=== PATIENT | female | born 1945 | race Caucasian/White ===

== ENCOUNTER 2017-03-21 12:02 | Day surgery (SDC) | payer OTHER ==
[~2017-03-21] VITALS: Ht 160 cm; Wt 104.5 kg
[~2017-03-21 12:02] MED LIST: ASPI81CH CHEW; ATEN25TA PO; B12-1CHW CHEW; CALTTAB PO; CARB25TA9 PO; CEFU250T PO; CHOL1CAP14 PO; CITA10TA4 PO; CLOP75TA PO; ENAL10TA PO; ENAL20TA; FURO20TA; GLIP5TAB8 PO; HYDR-3534 PO; HYDR25TA5 PO; IPRASOL NEB; LEVO100T5; LEVO100T63 PO; LOVA40TA; MAGN400C2; METF500T PO; POTA20TA5; PRAV40TA PO; PRAV40TA2; VENTAER INH; [UNRECOGNIZED DRUG - CODE]
[2017-03-21] MEDS ORDERED: VITA50TA10 PO (12:45)
[2017-03-21] MEDS ORDERED: ALEN1TAB48 PO (12:45)
[2017-03-21 12:53] VITALS: BP 147/75; PULSE 68; RESP 20; TEMP 98.2; O2SAT 93
[2017-03-21 15:09] VITALS: BP 138/79; PULSE 78; RESP 18; TEMP 97.9; O2SAT 98
--- NOTE | 2017-03-21 15:09 | PD.RAD ---
Post Procedure Progress Note Pre Procedure Diagnosis: (1) Normal pressure hydrocephalus Post Procedure Diagnosis: (1) Normal pressure hydrocephalus Procedure Date: March 21, 2017 Supervising Radiologist: Ashvin Carvajal JR Proceduralist/Assist: RT Alyssa(R) Anesthesia: Local Plan of Activity Patient to Unit: ROPU Patient Condition: Good Additional Comments: Shuntogram shows patent shunt. See full dictation in PACS See PACS Report for procedural detail/treatment Jr. Wei,Ashvin Diaz MD March 21, 2017 15:09
[2017-03-21] MEDS ORDERED: IOHEXOL 300 MG/ML 50 ML BTL (for RAD DIAG) ONE (15:17)
[2017-03-21 15:24] VITALS: BP 142/77; PULSE 75; RESP 19; O2SAT 99
[2017-03-21 15:54] VITALS: BP 140/70; PULSE 78; RESP 18; O2SAT 96
--- NOTE | 2017-03-21 17:45 | RADRPT ---
EXAM DATE/TIME: 03/21/2017 14:23 [facility] COMPARISON: No previous studies available for comparison. INDICATIONS : Patient with history of normal pressure hydrocephalus in need of shuntogram. MEDICAL HISTORY : HTN, HLD, Diabetes, NPH, VA, Asthma, CAD, Melanoma, Meningiomas, Osteoarthritis, Osteoporosis, Hypoth yroidism, V-Fib and V-tach SURGICAL HISTORY : Pacemaker, Cardiac cath with stent, [employer] Shunt, Tonsillectomy ENCOUNTER: Initial ACUITY: 1 week PAIN SCORE: 0/10 FLUORO TIME: 1.7 minutes IMAGE SERIES: 13 CONTRAST: 10 cc Omnipaque (iohexol) 300 PROCEDURE : 1. Fluoroscopically guided shuntogram. The risks, benefits and alternatives to the procedure were explained and verbal and written consent w as obtained. The site was prepped in sterile fashion. Full sterile technique was used, including ca p, mask, sterile gloves and gown and a large sterile sheet. Hand hygiene and 2% chlorhexidine and/or betadine/alcohol prep was utilized per protocol for cutaneous antisepsis. The skin and subcutaneous tissues were infiltrated with local anesthetic solution. With fluoroscopic guidance the previously placed shunt was injected with a 23 gauge butterfly needle and positive contrast was injected. There is a ventriculoperitoneal shunt observed. It enters via a right posterior parietal approach wit h the tip terminating in the left lateral ventricle. Ventriculomegaly noted. The shunt is patent. The tip of the shunt within the peritoneal cavity is within the right upper quadrant. CONCLUSION: Patent shunt. Ashvin Carvajal Jr., MD on March 21, 2017 at 17:43 Board Certified Radiologist. This report was verified electronically.
== END 2017-03-21 15:55 | disposition home or self-care (01) ==
LOC: HROP 12:02 → HRIP 12:03 → HROP 15:55
PROVIDERS: ATTEND Neurological Surgery
DX: G91.2 (Idiopathic) normal pressure hydrocephalus (principal); I10 Essential (primary) hypertension; E78.5 Hyperlipidemia, unspecified; E11.9 Type 2 diabetes mellitus without complications; I25.2 Old myocardial infarction; J45.909 Unspecified asthma, uncomplicated; I25.10 Atherosclerotic heart disease of native coronary artery without angina pectoris; M81.0 Age-related osteoporosis without current pathological fracture; M19.90 Unspecified osteoarthritis, unspecified site; E03.9 Hypothyroidism, unspecified; Z85.820 Personal history of malignant melanoma of skin; Z98.2 Presence of cerebrospinal fluid drainage device; Z95.0 Presence of cardiac pacemaker
CPT/HCPCS: 61070; 75809; Q9967

== ENCOUNTER 2017-07-18 00:54 | Emergency (ER) | payer OTHER ==
[~2017-07-18] VITALS: Ht 165.1 cm; Wt 80.0 kg
[~2017-07-18 00:54] MED LIST changes: +ALEN1TAB48 PO; -CARB25TA9 PO; -CEFU250T PO; -ENAL20TA; -HYDR25TA5 PO; -LEVO100T5; -PRAV40TA PO; -PRAV40TA2; -[UNRECOGNIZED DRUG - CODE]
[2017-07-18 01:02] VITALS: BP 159/74; PULSE 88; RESP 18; TEMP 99; O2SAT 96
[2017-07-18] MEDS ORDERED: SODIUM CHLORIDE 0.9% FLUSH 5 ML FLUSH IV FLUSH PRN (01:15)
[2017-07-18 01:42] VITALS: RESP 18; O2SAT 96
[2017-07-18 01:46] LABS: AUTOMATED NEUTROPHIL # 5.1 TH/MM3 (1.8-7.7); BASOPHIL # 0.1 TH/MM3 (0-0.2); BASOPHIL % 0.9 % (0.0-2.0); EOSINOPHIL # 0.2 TH/MM3 (0-0.4); EOSINOPHIL % 1.6 % (0.0-4.0); HEMATOCRIT 42.3 % (35.0-46.0); HEMO FLAGS DIFF FINAL; LYMPH % 37.4 % (9.0-44.0); LYMPHOCYTE # 3.6 TH/MM3 (1.0-4.8); MEAN CELL VOLUME 85.8 FL (80.0-100.0); MEAN CORPUSCULAR HEMOGLOBIN 28.2 PG (27.0-34.0); MEAN CORPUSCULAR HGB CONC 32.9 % (32.0-36.0); MONO % 7.5 % (0.0-8.0); NEUT % 52.6 % (16.0-70.0); PLATELET COUNT 396 TH/MM3 (150-450); RED BLOOD COUNT 4.93 MIL/MM3 (4.00-5.30); WHITE BLOOD COUNT 9.7 TH/MM3 (4.0-11.0)
--- NOTE | 2017-07-18 01:52 | RADRPT ---
EXAM DATE/TIME: 07/18/2017 01:25 [facility] COMPARISON: CHEST SINGLE AP, October 30, 2016, 20:29. INDICATIONS : Syncope. MEDICAL HISTORY : Hypertension. Cardiovascular disease SURGICAL HISTORY : Pacemaker. ENCOUNTER: Initial ACUITY: 1 day PAIN SCORE: 0/10 LOCATION: Bilateral chest FINDINGS: A single view of the chest demonstrates pacer lead overlying right ventricle. Minimal basilar atelect asis. Shunt tubing overlies right hemithorax. No pneumothorax. CONCLUSION: 1. Minimal basilar atelectasis. Tortuous aorta. Pacer lead unchanged. Jackson Cabrera MD on July 18, 2017 at 1:47 Board Certified Radiologist. This report was verified electronically.
[2017-07-18 01:57] LABS: APTT (PATIENT) 27.5 SEC (24.3-30.1); PROTHROMBIN TIME - PATIENT 10.9 SEC (9.8-11.6)
[2017-07-18 02:07] LABS: ALT (GPT) 17 U/L (10-53); ANION GAP 4 MEQ/L (5-15); AST (GOT) 20 U/L (15-37); BLOOD UREA NITROGEN 25 MG/DL (7-18); CHLORIDE 104 MEQ/L (98-107); GLOMERULAR FILTRATION RATE 53 ML/MIN (>89); POTASSIUM 4.2 MEQ/L (3.5-5.1); SODIUM (NA) 142 MEQ/L (136-145)
[2017-07-18 02:11] LABS: BACTERIA, URINE MANY /hpf; BLOOD, URINE NEG (NEG); GLUCOSE,URINE NEG (NEG); HYALINE CAST, URINE 32 /lpf (RARE); KETONE, URINE TRACE mg/dL (NEG); MUCUS URINE MANY /lpf (OCC); NITRITE,URINE NEG (NEG); SQUAMOUS EPITHELIAL CELL URINE 7 /hpf (0-5); URINE COLOR YELLOW (YELLW/STRAW)
[2017-07-18 02:14] LABS: COMMENT (UR) CATH-CULTURE IND; CULTURE IF INDICATED CATH CULTURE IND
[2017-07-18 02:17] LABS: ALKALINE PHOSPHATASE 87 U/L (45-117); TOTAL BILIRUBIN ADULT 0.3 MG/DL (0.2-1.0)
--- NOTE | 2017-07-18 02:26 | RADRPT ---
EXAM DATE/TIME: 07/18/2017 02:07 [facility] COMPARISON: No previous studies available for comparison. INDICATIONS : Altered mental status. RADIATION DOSE: 27.53 CTDIvol (mGy) MEDICAL HISTORY : Hypertension. Mesenteric ischemia. Hydrocephalus. Diabetes. SURGICAL HISTORY : Pacemaker. Shunt placement. ENCOUNTER: Initial ACUITY: 1 day PAIN SCALE: 0/10 LOCATION: cranial TECHNIQUE: Multiple contiguous axial images were obtained of the head. Using automated exposure control and adj ustment of the mA and/or kV according to patient size, radiation dose was kept as low as reasonably a chievable to obtain optimal diagnostic quality images. DICOM format image data is available electro nically for review and comparison. FINDINGS: Compare October 2016. There is a stable right frontal ventriculostomy tube which ends in the left la teral ventricle. Ventricular size is prominent but stable. No new mass, hemorrhage or shift. No abnor mal extra-axial fluid. No acute bony abnormality. CONCLUSION: 1. No acute findings. Stable ventriculostomy tube. Stable ventricular size. Jackson Cabrera MD on July 18, 2017 at 2:17 Board Certified Radiologist. This report was verified electronically.
--- NOTE | 2017-07-18 03:19 | RADRPT ---
EXAM DATE/TIME: 07/18/2017 02:39 [facility] COMPARISON: SHUNT SERIES, October 30, 2016, 20:16. INDICATIONS : Headaches, shunt intact. MEDICAL HISTORY : None. SURGICAL HISTORY : Pacemaker. Shunt. ENCOUNTER: Initial ACUITY: 1 day PAIN SCORE: 0/10 LOCATION: Bilateral head FINDINGS: Radiograph of the skull, neck, chest and abdomen performed to evaluate shunt patency. The shunt cath eter is seen entering the right parietal region with its tip in the region of the body of the left la teral ventricle. The catheter is continuous in its course terminating in the right upper quadrant. No catheter disrupt ion is identified. The visualized heart, lungs and abdominal structures are intact. CONCLUSION: Intact shunt. Jackson Cabrera MD on July 18, 2017 at 3:15 Board Certified Radiologist. This report was verified electronically.
[2017-07-18 04:00] VITALS: BP 142/67; PULSE 81; RESP 18; O2SAT 98
[2017-07-18] MEDS ORDERED: cefTRIAXone INJ 1,000 MG in SODIUM CHLORIDE 0.9% INJ 100 ML IV ONE (04:15)
[2017-07-18] MEDS ORDERED: MACR100C2 PO (05:58)
--- NOTE | 2017-07-18 05:58 | PD ---
HPI Chief Complaint: Altered Mental Status Time Seen by Provider: 01:13 Travel History International Travel<30 days: No Contact w/Intl Traveler<30days: No Traveled to known affect area: No History of Present Illness HPI Patient is a 71-year-old female brought in by EMS due to altered mental status. Per EMS, patient has a [employer] shunt, and family was concerned because she stopped talking. They report that she stops talking when something is wrong with her shunt. Currently patient is talking and has no complaints. She denies any pain. She denies any headache, nausea, vomiting. PFSH Past Medical History Hx Anticoagulant Therapy: Yes (asa 81mg daily) Arthritis: Yes Asthma: Yes Autoimmune Disease: No Blood Disorders: No Cancer: Yes (MELANOMA SKIN) Cardiovascular Problems: Yes (htn, mi ) Chemotherapy: Yes (1981) Cerebrovascular Accident: No Diabetes: Yes Patient Takes Glucophage: No Diminished Hearing: No Endocrine: No Gastrointestinal Disorders: No Genitourinary: No Headaches: No Hepatitis: No Hiatal Hernia: No Hypertension: Yes Immune Disorder: No Musculoskeletal: Yes (ARTHRITIS, LOWER BACK PAIN) Neurologic: Yes (FLUID ON HER BRAIN, BALANCE ISSUES, DIFFICULTY WALKING) Psychiatric: No Reproductive: No Respiratory: Yes (asthma) Myocardial Infarction: Yes (2004) Thyroid Disease: Yes Tetanus Vaccination: Unknown Influenza Vaccination: Yes Menopausal: Yes Tubal Ligation: Yes Past Surgical History Abdominal Surgery: No AICD: Yes Cardiac Surgery: Yes (PACEMAKER /AICD) Ear Surgery: No Endocrine Surgery: No Eye Surgery: No Genitourinary Surgery: No Gynecologic Surgery: No Joint Replacement: No Oral Surgery: No Pacemaker: Yes Thoracic Surgery: No Tonsillectomy: Yes Other Surgery: Yes (SKIN CA REMOVED ) Social History Alcohol Use: No Tobacco Use: No Substance Use: No Allergies-Medications (Allergen,Severity, Reaction): Coded Allergies: budesonide (Unverified Adverse Reaction, Mild, Rash, 06/19/17) formoterol (Unverified Adverse Reaction, Mild, Rash, 06/19/17) Reported Meds & Prescriptions Reported Meds & Active Scripts Active Macrobid (Nitrofurantoin Monoh/Nitrofur Macro) 100 Mg Cap 100 Mg PO BID 7 Days Citalopram (Citalopram Hydrobromide) 10 Mg Tab 10 Mg PO DAILY Duoneb (Ipratropium-Albuterol Neb) 0.5-2.5 Mg/3 Ml Neb 1 Ampule NEB Q4HR NEB PRN 30 Days Enalapril (Enalapril Maleate) 10 Mg Tab 20 Mg PO BID 30 Days Lortab (Hydrocodone-Acetaminophen) 7.5-325 Mg Tab 1 Tab PO Q6H PRN Reported Alendronate (Alendronate Sodium) 70 Mg Tab 70 Mg PO Q7D Potassium Chloride Microencaps 20 Meq Tab Furosemide 20 Mg Tab Lovastatin 40 Mg Tab Ventolin Hfa 18 GM Inh (Albuterol Sulfate) 90 Mcg/Act Aer 2 Puff INH Q4H PRN Caltrate 600+D (Calcium Carbonate-Cholecalciferol) 600-800 Mg-Unit Tab 1 Tab PO BID D3 Maximum Strength (Cholecalciferol) 5,000 Unit Cap 5,000 Units PO DAILY P66-Addapk (Methylcobalamin) 1 Mg Chew 1 Mg CHEW DAILY Levoxyl (Levothyroxine Sodium) 100 Mcg Tab 100 Mcg PO DAILY Magnesium Oxide 400 Mg Cap BID Atenolol 25 Mg Tab 25 Mg PO DAILY Aspirin 81 Mg Chew 81 Mg CHEW DAILY Clopidogrel (Clopidogrel Bisulfate) 75 Mg Tab 75 Mg PO DAILY Glipizide 5 Mg Tab 5 Mg PO BIDAC Take 30 minutes before a meal Metformin (Metformin HCl) 500 Mg Tab 500 Mg PO BIDPC With meals Review of Systems Except as stated in HPI: all other systems reviewed are Neg General / Constitutional: No: Fever, Chills Eyes: No: Blurred Vision HENT: No: Headaches, Lightheadedness Cardiovascular: No: Chest Pain or Discomfort Respiratory: No: Shortness of Breath Gastrointestinal: No: Nausea, Vomiting Musculoskeletal: No: Pain Skin: No Rash, No Change in Pigmentation Neurologic: No: Weakness, Dizziness, Syncope Physical Exam Narrative GENERAL: Awake and alert, in no acute distress. SKIN: Focused skin assessment warm/dry. HEAD: Atraumatic. Normocephalic. EYES: Pupils equal and round. No scleral icterus. Extraocular movements intact. ENT: Mucous membranes pink and moist. NECK: Trachea midline. No JVD. CARDIOVASCULAR: Regular rate and rhythm. No murmur appreciated. RESPIRATORY: No accessory muscle use. Clear to auscultation. Breath sounds equal bilaterally. GASTROINTESTINAL: Abdomen soft, non-tender, nondistended. MUSCULOSKELETAL: No obvious deformities. No clubbing. No cyanosis. No edema. NEUROLOGICAL: Awake and alert. No obvious cranial nerve deficits. Motor grossly within normal limits. Normal speech. PSYCHIATRIC: Appropriate mood and affect; insight and judgment normal. Data Data Last Documented VS Vital Signs Date Time Temp Pulse Resp B/P (MAP) Pulse Ox O2 Delivery O2 Flow Rate FiO2 07/18/17 04:00 81 18 142/67 (92) 98 Room Air 07/18/17 01:02 99.0 Orders Orders Electrocardiogram (07/18/17 01:14) Complete Blood Count With Diff (07/18/17 01:14) Comprehensive Metabolic Panel (07/18/17 01:14) Prothrombin Time / Inr (Pt) (07/18/17 01:14) Act Partial Throm Time (Ptt) (07/18/17 01:14) Troponin I (07/18/17 01:14) Thyroid Stimulating Hormone (07/18/17 01:14) Urinalysis - C+S If Indicated (07/18/17 01:14) Chest, Single Ap (07/18/17 01:14) Ct Brain W/O Iv Contrast(Rout) (07/18/17 01:14) Blood Glucose (07/18/17 01:14) Ecg Monitoring (07/18/17 01:14) Iv Access Insert/Monitor (07/18/17 01:14) Oximetry (07/18/17 01:14) Sodium Chloride 0.9% Flush (Ns Flush) (07/18/17 01:15) Urine Culture (07/18/17 01:49) Shunt Series (07/18/17 ) Ceftriaxone Inj (Rocephin Inj) (07/18/17 04:15) Labs Laboratory Tests Test 07/18/17 01:34 07/18/17 01:49 White Blood Count 9.7 TH/MM3 Red Blood Count 4.93 MIL/MM3 Hemoglobin 13.9 GM/DL Hematocrit 42.3 % Mean Corpuscular Volume 85.8 FL Mean Corpuscular Hemoglobin 28.2 PG Mean Corpuscular Hemoglobin Concent 32.9 % Red Cell Distribution Width 15.0 % Platelet Count 396 TH/MM3 Mean Platelet Volume 6.9 FL Neutrophils (%) (Auto) 52.6 % Lymphocytes (%) (Auto) 37.4 % Monocytes (%) (Auto) 7.5 % Eosinophils (%) (Auto) 1.6 % Basophils (%) (Auto) 0.9 % Neutrophils # (Auto) 5.1 TH/MM3 Lymphocytes # (Auto) 3.6 TH/MM3 Monocytes # (Auto) 0.7 TH/MM3 Eosinophils # (Auto) 0.2 TH/MM3 Basophils # (Auto) 0.1 TH/MM3 CBC Comment DIFF FINAL Differential Comment Prothrombin Time 10.9 SEC Prothromb Time International Ratio 1.0 RATIO Activated Partial Thromboplast Time 27.5 SEC Blood Urea Nitrogen 25 MG/DL Creatinine 1.02 MG/DL Random Glucose 94 MG/DL Total Protein 7.7 GM/DL Albumin 3.6 GM/DL Calcium Level 10.1 MG/DL Alkaline Phosphatase 87 U/L Aspartate Amino Transf (AST/SGOT) 20 U/L Alanine Aminotransferase (ALT/SGPT) 17 U/L Total Bilirubin 0.3 MG/DL Sodium Level 142 MEQ/L Potassium Level 4.2 MEQ/L Chloride Level 104 MEQ/L Carbon Dioxide Level 34.0 MEQ/L Anion Gap 4 MEQ/L Estimat Glomerular Filtration Rate 53 ML/MIN Troponin I LESS THAN 0.02 NG/ML Thyroid Stimulating Hormone 3rd Gen 2.290 uIU/ML Urine Color YELLOW Urine Turbidity CLOUDY Urine pH 6.0 Urine Specific [place] 1.034 Urine Protein 30 mg/dL Urine Glucose (UA) NEG mg/dL Urine Ketones TRACE mg/dL Urine Occult Blood NEG Urine Nitrite NEG Urine Bilirubin NEG Urine Urobilinogen 4.0 MG/DL Urine Leukocyte Esterase MOD Urine RBC 4 /hpf Urine WBC 11 /hpf Urine Squamous Epithelial Cells 7 /hpf Urine Amorphous Sediment RARE Urine Bacteria MANY /hpf Urine Hyaline Casts 32 /lpf Urine Mucus MANY /lpf Microscopic Urinalysis Comment CATH-CULTURE IND MDM Medical Decision Making Medical Screen Exam Complete: Yes Emergency Medical Condition: Yes Medical Record Reviewed: Yes Differential Diagnosis UTI versus shunt malfunction versus electrolyte abnormality Narrative Course Patient is a 71-year-old female brought in by EMS due to altered mental status. Currently patient is awake and alert, has no complaints. IV established, labs sent. Labs show no acute abnormalities. Urinalysis is positive for UTI. CT head shows no acute abnormalities. Shunt series shows no issues with the shunt. given a dose of Rocephin. Family is at bedside. They're informed of the results. They're comfortable taking her home. She'll be discharged with a prescription for antibiotics. Advised follow-up with her doctor. Advised to return to the ED as needed for any worsening symptoms. Diagnosis Primary Impression: UTI (urinary tract infection) Qualified Codes: N30.00 - Acute cystitis without hematuria Patient Instructions: General Instructions, Urinary Tract Infection in Women ( ED) Departure Forms: Tests/Procedures Additional Instructions: Follow-up with your doctor. Return to the ED as needed for any worsening symptoms. Take all of your medication. Scripts Nitrofurantoin Monohydrate Macrocrystals (Macrobid) 100 Mg Cap 100 MG PO BID for Infection for 7 Days, CAP 0 Refills Prov: Yana Child MD 07/18/17 Disposition: 01 DISCHARGE HOME Condition: Stable Yana Child MD Jul 18, 2017 05:58
--- NOTE | 2017-07-18 21:23 | EKG ---
Date Performed: 07/18/2017 Time Performed: 01:24:34 PTAGE: 71 years EKG: Sinus rhythm NONSPECIFIC T-WAVE ABNORMALITY BORDERLINE ECG PREVIOUS TRACING : 10/30/2016 19.45 Compared to prior tracing no significant change DOCTOR: Felipe Chris Interpretating Date/Time 07/18/2017 21:22:04
== END 2017-07-18 06:10 | disposition home or self-care (01) ==
LOC: NEPE 00:54
DX: N30.00 Acute cystitis without hematuria (principal); B96.89 Other specified bacterial agents as the cause of diseases classified elsewhere; E11.9 Type 2 diabetes mellitus without complications; I10 Essential (primary) hypertension; I25.2 Old myocardial infarction; R94.31 Abnormal electrocardiogram [ECG] [EKG]; Z79.82 Long term (current) use of aspirin; Z79.84 Long term (current) use of oral hypoglycemic drugs; Z79.899 Other long term (current) drug therapy; Z85.820 Personal history of malignant melanoma of skin; Z98.2 Presence of cerebrospinal fluid drainage device
CPT/HCPCS: 70250; 70450; 71010; 72040; 74000; 80053; 81001; 84443; 84484; 85025; 85610; 85730; 87077; 87086; 87186; 93005; 96365; 99285; J0696